=== PATIENT | male | born 1935 | race Caucasian/White ===

== ENCOUNTER 2020-11-30 10:14 | Inpatient (IN) | payer OTHER ==
[~2020-11-30] VITALS: Ht 152.4 cm; Wt 63.2 kg
[~2020-11-30 10:14] MED LIST: ACETAMINOPHEN650 M5 PO; ASPIRIN EC650 MG PO; ATIVAN0.5 MG PO; ATORVASTATIN CA40 M1 PO; BENZONATATE100 M1 PO; CELEXA20 MG PO; CIMETIDINE400 M1 PO; DAILY VALUE1 EACH PO; EXELON1 EAC1 T; EXELON1 EACH T; GABAPENTIN100 M2 PO; LEVOTHYROXINE100 MC1 PO; LISINOPRIL10 M1 PO; MEDI-MECLIZINE25 MG PO; MELATONIN3 MG PO; NITROSTAT0.4 MG SL; NUPLAZID34 MG PO; OMEPRAZOLE MAGN20 M1 PO; PROTONIX TR40 M1 PO; SINEMET 25-1001 EACH PO
[2020-11-30 10:48] VITALS: BP 113/61
[2020-11-30 11:13] LABS: BASO # 0.1 10*3/uL (0.0-0.1); BASO % 0.8 % (0.0-1.0); EOS # 0.2 10*3/uL (0.0-0.4); EOS % 3.4 % (1.0-4.0); HEMATOCRIT 32.1 % (42.0-52.0); MEAN CELL VOLUME 98.2 fl (80.0-94.0); MEAN CORPUSCULAR HGB 31.5 pg (27.0-31.0); MEAN CORPUSCULAR HGB CONC 32.1 g/dl (33.0-37.0); MEAN PLATELET VOLUME 10.8 fl (9.6-12.3); MONO # 0.6 10*3/uL (0.1-1.0); NEUT # 5.1 10*3/uL (2.3-7.9); NEUT % 72.4 % (47.0-73.0); PLATELET COUNT AUTOMATED 194 10*3/uL (130-400); RED BLOOD COUNT 3.27 10*6/uL (4.50-5.90); RED CELL DISTRI WIDTH 13.2 % (0-14.5); WHITE BLOOD COUNT 7.1 10*3/uL (4.8-10.8)
[2020-11-30 11:29] LABS: CREATININE 2.01 mg/dL (0.70-1.30); POTASSIUM 4.3 mmol/L (3.5-5.1); TOTAL PROTEIN 6.9 gm/dL (6.4-8.2)
[2020-11-30 11:37] LABS: THYROID STIM HORMONE (HS) 6.12 uIU/ml (0.358-4.75)
[2020-11-30 11:58] LABS: VITAMIN D, 25-HYDROXY 47.8 ng/mL (30-100)
[2020-11-30 18:26] LABS: BILIRUBIN Negative (Negative); BLOOD Negative (Negative); CLARITY Cloudy (Clear); COLOR Dark Yellow (Yellow); GLUCOSE Negative (Negative); KETONE Trace (Negative); LEUKO ESTERASE Negative (Negative); NITRITE Negative (Negative); SPECIFIC GRAVITY 1.025 (1.001-1.030)
[2020-11-30 20:00] VITALS: BP 125/75
[2020-11-30 21:39] LABS: BACTERIA TRACE; EPITHELIAL CELLS 0-2; MUCOUS TRACE; RBC 0-2 rbc/hpf (0-2); WBC 0-2 wbc/hpf (0-5)
[2020-11-30 21:45] LABS: CALCIUM OXALATE CRYSTALS 3+
[2020-11-30 21:46] LABS: HYALINE CAST 0-2
[2020-12-01 07:53] VITALS: BP 135/69
[2020-12-01 08:08] LABS: CREATININE 1.62 mg/dL (0.70-1.30)
[2020-12-01 20:00] VITALS: BP 130/72
[2020-12-02 07:34] VITALS: BP 124/63
[2020-12-02 16:08] LABS: NEURONTIN (GABAPENTIN) 6.9 ug/mL (4.0-16.0)
[2020-12-02 20:00] VITALS: BP 133/56
[2020-12-03 07:10] VITALS: BP 152/61
[2020-12-03 19:04] VITALS: BP 115/50
[2020-12-04 07:43] VITALS: BP 139/61
[2020-12-04 11:43] LABS: CREATININE 1.42 mg/dL (0.70-1.30); POTASSIUM 4.5 mmol/L (3.5-5.1)
[2020-12-04 20:00] VITALS: BP 116/52
[2020-12-05 07:20] VITALS: BP 147/82
[2020-12-05 20:00] VITALS: BP 127/88
[2020-12-06] MEDS ORDERED: NUPLAZID34 MG PO (09:11)
== END 2020-12-05 21:46 | disposition short-term general hospital (02) | DRG 883 ==
LOC: 3N 10:14
PROVIDERS: Internal Medicine; Registered Nurse; ADMIT Psychiatry & Neurology Psychiatry; ATTEND Psychiatry & Neurology Psychiatry
DX: F63.81 Intermittent explosive disorder (principal); N18.32 Chronic kidney disease, stage 3b; R45.851 Suicidal ideations; B37.0 Candidal stomatitis; F02.81 Dementia in other diseases classified elsewhere, unspecified severity, with behavioral disturbance; Z20.822 Contact with and (suspected) exposure to COVID-19; G20 Parkinson's disease; K21.9 Gastro-esophageal reflux disease without esophagitis; F41.9 Anxiety disorder, unspecified; E03.9 Hypothyroidism, unspecified; F32.9 Major depressive disorder, single episode, unspecified; E78.5 Hyperlipidemia, unspecified; F63.9 Impulse disorder, unspecified; Z82.49 Family history of ischemic heart disease and other diseases of the circulatory system; Z79.1 Long term (current) use of non-steroidal anti-inflammatories (NSAID); Z79.899 Other long term (current) drug therapy; Z79.82 Long term (current) use of aspirin; Z91.041 Radiographic dye allergy status

== ENCOUNTER 2020-12-05 21:51 | Inpatient (IN) | payer OTHER ==
[~2020-12-05] VITALS: Ht 167.6 cm; Wt 72.1 kg
[2020-12-05 21:54] VITALS: BP 103/47
[2020-12-05 23:40] LABS: BASO # 0.1 10*3/uL (0.0-0.1); BASO % 0.8 % (0.0-1.0); EOS # 0.2 10*3/uL (0.0-0.4); EOS % 2.1 % (1.0-4.0); HEMATOCRIT 31.8 % (42.0-52.0); LYMPH # 1.1 10*3/uL (1.3-4.4); LYMPH % 15.3 % (27.0-41.0); MEAN CELL VOLUME 96.7 fl (80.0-94.0); MEAN CORPUSCULAR HGB CONC 32.1 g/dl (33.0-37.0); MEAN PLATELET VOLUME 10.4 fl (9.6-12.3); MONO # 0.9 10*3/uL (0.1-1.0); MONO % 12.5 % (3.0-9.0); NEUT # 5.1 10*3/uL (2.3-7.9); NEUT % 68.6 % (47.0-73.0); PLATELET COUNT AUTOMATED 186 10*3/uL (130-400); RED BLOOD COUNT 3.29 10*6/uL (4.50-5.90); RED CELL DISTRI WIDTH 13.2 % (0-14.5); WHITE BLOOD COUNT 7.5 10*3/uL (4.8-10.8)
[2020-12-05 23:56] LABS: ABG BASE EXCESS -0.2 mmol/L (-2.0-2.0); ARTERIAL BLOOD GAS PH 7.39 (7.35-7.45); ARTERIAL BLOOD GAS PO2 134.5 (80-90)
[2020-12-05 23:58] LABS: ALBUMIN 2.8 gm/dl (3.1-4.5); ALKALINE PHOSPHATASE 96 U/L (45-117); BUN 32 mg/dl (7-24); CHLORIDE 108 mmol/L (98-107); CREATININE 1.55 mg/dL (0.70-1.30); POTASSIUM 4.1 mmol/L (3.5-5.1); SGOT/AST 43 IU/L (3-35); SGPT/ALT 26 U/L (12-78); SODIUM 139 mmol/L (136-145); TOTAL PROTEIN 6.8 gm/dL (6.4-8.2)
[2020-12-06] VITALS: BP 156/59
[2020-12-06 00:03] LABS: TROPONIN I < 0.015 ng/ml (<0.045)
[2020-12-06 06:27] LABS: BASO # 0.1 10*3/uL (0.0-0.1); BASO % 0.6 % (0.0-1.0); EOS # 0.2 10*3/uL (0.0-0.4); EOS % 2.6 % (1.0-4.0); HEMATOCRIT 31.2 % (42.0-52.0); LYMPH # 1.8 10*3/uL (1.3-4.4); LYMPH % 23.4 % (27.0-41.0); MEAN CELL VOLUME 95.4 fl (80.0-94.0); MEAN CORPUSCULAR HGB 30.6 pg (27.0-31.0); MEAN CORPUSCULAR HGB CONC 32.1 g/dl (33.0-37.0); MEAN PLATELET VOLUME 10.5 fl (9.6-12.3); MONO # 0.9 10*3/uL (0.1-1.0); NEUT # 4.9 10*3/uL (2.3-7.9); NEUT % 62.1 % (47.0-73.0); PLATELET COUNT AUTOMATED 199 10*3/uL (130-400); RED BLOOD COUNT 3.27 10*6/uL (4.50-5.90); RED CELL DISTRI WIDTH 13.1 % (0-14.5); WHITE BLOOD COUNT 7.8 10*3/uL (4.8-10.8)
[2020-12-06 06:47] LABS: ALBUMIN 2.8 gm/dl (3.1-4.5); BUN 28 mg/dl (7-24); CHLORIDE 107 mmol/L (98-107); CREATININE 1.22 mg/dL (0.70-1.30); POTASSIUM 4.3 mmol/L (3.5-5.1); SGOT/AST 42 IU/L (3-35); SGPT/ALT 28 U/L (12-78); SODIUM 139 mmol/L (136-145)
[2020-12-06 06:49] LABS: ALKALINE PHOSPHATASE 91 U/L (45-117); TOTAL PROTEIN 6.5 gm/dL (6.4-8.2)
[2020-12-06 08:00] VITALS: BP 140/70
[2020-12-06] MEDS ORDERED: NUPLAZID34 MG PO (09:11)
[2020-12-06 12:00] VITALS: BP 123/63
[2020-12-06 16:00] VITALS: BP 118/48
[2020-12-06 16:26] LABS: BILIRUBIN Negative (Negative); BLOOD Negative (Negative); CLARITY Clear (Clear); COLOR Yellow (Yellow); GLUCOSE Negative (Negative); KETONE Negative (Negative); LEUKO ESTERASE Negative (Negative); NITRITE Negative (Negative)
[2020-12-06 18:52] LABS: BACTERIA TRACE; CALCIUM OXALATE CRYSTALS 1+; EPITHELIAL CELLS 0-2; FINE GRANULAR CAST 0-2; HYALINE CAST 0-2; MUCOUS TRACE; RBC 0-2 rbc/hpf (0-2); WBC 0-2 wbc/hpf (0-5)
[2020-12-06 20:00] VITALS: BP 130/52
[2020-12-07] VITALS: BP 154/61
[2020-12-07 08:00] VITALS: BP 130/60
[2020-12-07 12:00] VITALS: BP 145/73
[2020-12-07] MEDS ORDERED: AUGMENTIN 875875 MG PO (14:17)
[2020-12-07] MEDS ORDERED: ROZEREM8 MG PO (16:38)
[2020-12-07] MEDS ORDERED: EXELON1 EAC2 TD (16:38)
[2020-12-07] MEDS ORDERED: NAMENDA-5 PO (16:38)
[2020-12-07] MEDS ORDERED: PROVERA10 MG PO (16:39)
[2020-12-07] MEDS ORDERED: CARBIDOPA-LEVO1 EAC6 PO (16:42)
[2020-12-07] MEDS ORDERED: NEURONTIN100 MG PO ×2 (16:43→16:47)
[2020-12-07] MEDS ORDERED: GABAPENTIN100 M2 PO (16:43)
== END 2020-12-07 15:41 | DRG 177 ==
LOC: 5E 21:51
PROVIDERS: Emergency Medicine; Internal Medicine; ADMIT Emergency Medicine; ATTEND Emergency Medicine
PROC: BD11YZZ Fluoroscopy of Esophagus using Other Contrast (ICD-10-PCS; principal; 2020-12-07)
DX: J69.0 Pneumonitis due to inhalation of food and vomit (principal); E43 Unspecified severe protein-calorie malnutrition; B37.0 Candidal stomatitis; R45.851 Suicidal ideations; R09.02 Hypoxemia; G20 Parkinson's disease; I12.9 Hypertensive chronic kidney disease with stage 1 through stage 4 chronic kidney disease, or unspecified chronic kidney disease; N18.9 Chronic kidney disease, unspecified; D53.9 Nutritional anemia, unspecified; E87.8 Other disorders of electrolyte and fluid balance, not elsewhere classified; F63.9 Impulse disorder, unspecified; G30.9 Alzheimer's disease, unspecified; F02.80 Dementia in other diseases classified elsewhere, unspecified severity, without behavioral disturbance, psychotic disturbance, mood disturbance, and anxiety; F63.81 Intermittent explosive disorder; K21.9 Gastro-esophageal reflux disease without esophagitis; E03.9 Hypothyroidism, unspecified; F32.9 Major depressive disorder, single episode, unspecified; E78.5 Hyperlipidemia, unspecified; F41.9 Anxiety disorder, unspecified; Z91.041 Radiographic dye allergy status; Z79.1 Long term (current) use of non-steroidal anti-inflammatories (NSAID); Z79.82 Long term (current) use of aspirin; Z79.899 Other long term (current) drug therapy

== ENCOUNTER 2020-12-07 15:53 | Inpatient (IN) | payer OTHER ==
[~2020-12-07] VITALS: Ht 152.4 cm; Wt 63.2 kg
[~2020-12-07 15:53] MED LIST changes: +AUGMENTIN 875875 MG PO
[2020-12-07 16:10] VITALS: BP 149/56
[2020-12-07] MEDS ORDERED: ROZEREM8 MG PO (16:38)
[2020-12-07] MEDS ORDERED: NAMENDA-5 PO (16:38)
[2020-12-07] MEDS ORDERED: EXELON1 EAC2 TD (16:38)
[2020-12-07] MEDS ORDERED: PROVERA10 MG PO (16:39)
[2020-12-07] MEDS ORDERED: CARBIDOPA-LEVO1 EAC6 PO (16:42)
[2020-12-07] MEDS ORDERED: NEURONTIN100 MG PO ×2 (16:43→16:47)
[2020-12-07] MEDS ORDERED: GABAPENTIN100 M2 PO (16:43)
[2020-12-07 20:00] VITALS: BP 142/62
[2020-12-08 07:33] VITALS: BP 153/67
[2020-12-08 20:00] VITALS: BP 135/55
[2020-12-09 07:13] VITALS: BP 139/69
[2020-12-09 20:00] VITALS: BP 142/66
[2020-12-10 07:28] VITALS: BP 149/57
[2020-12-10 19:03] VITALS: BP 149/60
[2020-12-11 07:42] VITALS: BP 146/64
[2020-12-11 20:00] VITALS: BP 138/58
[2020-12-12 07:38] VITALS: BP 143/53
[2020-12-12 20:00] VITALS: BP 140/48
[2020-12-13 07:33] VITALS: BP 119/58
[2020-12-13] MEDS ORDERED: MEMANTINE HCL10 MG PO (09:55)
[2020-12-13] MEDS ORDERED: GABAPENTIN100 M2 PO (09:55)
[2020-12-13] MEDS ORDERED: MEDROXYPROGESTE10 M1 PO (09:55)
[2020-12-13] MEDS ORDERED: ROZEREM8 MG PO (09:55)
[2020-12-13] MEDS ORDERED: RIVASTIGMINE1 EAC2 T (09:55)
== END 2020-12-13 14:05 | DRG 883 ==
LOC: 3N 15:53
PROVIDERS: ADMIT Psychiatry & Neurology Psychiatry; ATTEND Psychiatry & Neurology Psychiatry
DX: F63.81 Intermittent explosive disorder (principal); N18.9 Chronic kidney disease, unspecified; J69.0 Pneumonitis due to inhalation of food and vomit; K21.9 Gastro-esophageal reflux disease without esophagitis; E03.9 Hypothyroidism, unspecified; E78.5 Hyperlipidemia, unspecified; G30.9 Alzheimer's disease, unspecified; F41.9 Anxiety disorder, unspecified; G20 Parkinson's disease; F63.9 Impulse disorder, unspecified; F02.80 Dementia in other diseases classified elsewhere, unspecified severity, without behavioral disturbance, psychotic disturbance, mood disturbance, and anxiety; F32.9 Major depressive disorder, single episode, unspecified; I12.9 Hypertensive chronic kidney disease with stage 1 through stage 4 chronic kidney disease, or unspecified chronic kidney disease; Z88.8 Allergy status to other drugs, medicaments and biological substances